=== PATIENT | male | born 1955 | race Caucasian/White ===

== ENCOUNTER 2020-09-28 10:14 | Emergency (ER) | payer BC ==
[~2020-09-28] VITALS: Ht 185.4 cm; Wt 104.5 kg
[2020-09-28] MEDS ORDERED: KETOROLAC 30 MG/ML VIAL. ONE (11:13)
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
[2020-09-28] MEDS ORDERED: KETOROLAC 30 MG/ML VIAL. IVP ONE (11:15)
[2020-09-28] MEDS ORDERED: IV NORMAL SALINE 1000ML BAG 1,000 ML IV ONE (11:15)
[2020-09-28 11:22] LABS: BASO # 0.1 x10^3/uL (0.0-0.2); BASO % 1 % (0-3); EOS % 1 % (0-3); HEMATOCRIT 43.7 % (39.0-53.0); HEMOGLOBIN 15.1 g/dL (13.0-17.5); LYMPH # 1.6 x10^3/uL (1.0-4.8); LYMPH % 30 % (24-48); MEAN CORPUSCULAR HEMOGLOBIN 31 pg (25-35); MEAN CORPUSCULAR HGB CONC 35 g/dL (31-37); MEAN CORPUSCULAR VOLUME 89 fL (79-100); MONO # 0.6 x10^3/uL (0.0-1.1); MONO % 11 % (0-9); NEUT % 58 % (31-73); PLATELET COUNT 214 x10^3/uL (140-400); RED BLOOD COUNT 4.94 x10^6/uL (4.30-5.70); RED CELL DISTRIBUTION WIDTH 15.2 % (11.5-14.5); WHITE BLOOD COUNT 5.2 x10^3/uL (4.0-11.0)
[2020-09-28 11:34] LABS: CALCIUM 9.6 mg/dL (8.5-10.1); CREATININE 1.1 mg/dL (0.7-1.3); GFR 67.6; POTASSIUM 4.1 mmol/L (3.5-5.1)
[2020-09-28 11:36] LABS: ALBUMIN 4.3 g/dL (3.4-5.0); ALBUMIN/GLOBULIN RATIO 1.3 (1.0-1.7); TOTAL BILIRUBIN 0.5 mg/dL (0.2-1.0); TOTAL PROTEIN 7.7 g/dL (6.4-8.2)
[2020-09-28 13:28] LABS: BILIRUBIN,URINE NEGATIVE (NEG); CLARITY,URINE CLEAR; COLOR,URINE YELLOW; NITRITE,URINE NEGATIVE (NEG); PROTEIN,URINE NEGATIVE (NEG-TRACE); UROBILINOGEN,URINE 0.2 mg/dL (0.2 mg/dL)
[2020-09-28 13:31] LABS: BACTERIA,URINE 0 /HPF (0-FEW); RBC,URINE 0 /HPF (0-2); WBC,URINE 0 /HPF (0-4)
[2020-09-28 14:19] VITALS: BP 160/88
--- NOTE | 2020-09-28 14:48 | RAD ---
INDICATION: Reason: constipation pains, upper abdomen pain / Spl. Instructions: / History: COMPARISON: None. IMPRESSION: Abdomen: 2 views obtained. Degenerative changes of the hips and spine. There is a couple mildly promi nent loops of air-filled small bowel seen but overall grossly nonobstructive bowel gas pattern. Electronically signed by: J Carlos Kaplan MD (09/28/2020 2:46 PM) [id number]
[2020-09-28] MEDS ORDERED: MAGNESIUM CITRATE 296 ML SOLUTION. PO ONE (15:00)
== END 2020-09-28 15:19 | disposition home or self-care (01) ==
LOC: ER 10:14
DX: K59.00 Constipation, unspecified (principal); R10.11 Right upper quadrant pain; R10.12 Left upper quadrant pain
CPT/HCPCS: 36415; 74018; 80053; 81001; 83690; 85025; 96361; 96374; 99285; J1885; J7030